=== PATIENT | female | born 1970 | race Caucasian/White ===

== ENCOUNTER 2019-05-12 19:51 | Emergency (ER) | payer OTHER, SELFPAY ==
[2019-05-12 20:03] VITALS: BP 107/68; PULSE 87; RESP 16; TEMP 37.1; O2SAT 98
--- NOTE | 2019-05-12 20:43 | ED.GENADULT ---
HPI - General Adult General Chief complaint: Upper Respiratory Infection Stated complaint: Cough/Fever/Eye problems Time Seen by Provider: 05/12/19 20:43 Source: patient and RN notes reviewed Mode of arrival: ambulatory Limitations: no limitations History of Present Illness HPI narrative: 49-year-old female presents with complaints of upper respiratory infection, facial congestion, facial pain, and cough, for the past 2-3 days. Tylenol (last approximately @17:30) with some relief. No facial swelling. Symptoms increased throughout the day with sore throat and tactile fever with intermittent sweats and chills. Dry cough. Nasal congestion and rhinorrhea. Sore throat bilateral. Hurts to swallow. No voice change. No drooling, neck or throat swelling. No chest pain or shortness of breath. Exacerbating factors consist of smoke exposure and swallowing. Denies nausea, vomiting, and abdominal pain. Tolerating po intake well. Remains active. Yoselin denies being , LMP hysterectomy. Some parts of this dictation were generated by voice recognition software and may contain typographical and/or grammatical inaccuracies. Related Data Home Medications Medication Instructions Recorded Confirmed estradiol 1 mg PO DAILY 02/11/19 02/11/19 Allergies Allergy/AdvReac Type Severity Reaction Status Date / Time iodine Allergy Unknown Rash Verified 02/11/19 12:26 Penicillins Allergy Unknown Rash Verified 02/11/19 12:26 Sulfa (Sulfonamide Allergy Unknown Rash Verified 02/11/19 12:26 Antibiotics) Contrast Media Allergy Severe Swelling Uncoded 02/11/19 12:26 Review of Systems Review of Systems: Narrative: CONSTITUTIONAL: Complains of tactile fever, chills, sweats. EYES: Denies visual changes, redness, discharge. ENT: Complains of rhinorrhea, congestion, sore throat. Denies otalgia. CARDIOVASCULAR: Denies chest pain, palpitations, edema. RESPIRATORY: Denies dyspnea, wheezing. Complains of dry cough. GASTROINTESTINAL: Denies abdominal pain, nausea, vomiting, diarrhea. GENITOURINARY: Denies dysuria, hematuria, abnormal discharge. SKIN: Denies rash or itching. MUSCULOSKELETAL: Denies acute back pain, joint pain, or myalgia. NEUROLOGIC: Denies numbness or focal weakness. PSYCHIATRIC: Denies anxiety or depression. All systems reviewed & are unremarkable except as noted in HPI and below. [facility] Past Medical History Medical History Migraines Seasonal allergies Urinary tract infection Surgical History Surgical History H/O: hysterectomy History of cholecystectomy Tubal ligation status Family History Family History (Updated 05/12/19 @ 20:51 by HAYLEE Irby) Mother Diabetes mellitus Cardiac arrhythmia Social History Social History (Updated 05/12/19 @ 20:51 by HAYLEE Irby) Smoking status: Never smoker Second hand tobacco smoke exposure: Yes Alcohol intake: current Alcohol use details: Occasional Substance use: never Living arrangements: with family Occupation/Education: occupation Gender identity (if verbalized by the patient): Female Comments At time of signature, agree with nurse past medical, surgical, social, and family history. There is no relevant family history pertinent to the presenting complaint. Exam Narrative: Exam Narrative: GENERAL: This is a well-nourished, well-developed patient, in no apparent distress. Talks in full sentences and ambulates with steady gait without dyspnea. HEAD: normocephalic, atraumatic. EYES: PERRL. Sclera clear/white. Vision is grossly intact. EARS: External ears normal, auditory canals clear and without drainage, TMs normal without perforation. Hearing grossly intact. NOSE: External nose normal with no obvious nasal discharge, nares with mild-moderate redness and enlarged turbinates, clear rhinorrhea. THROAT: Mucou
== END 2019-05-12 20:57 | disposition home or self-care (01) ==
PROVIDERS: Emergency Provider Nurse Practitioner Family; PCP Family Medicine
DX: J00 Acute nasopharyngitis [common cold] (principal); J01.90 Acute sinusitis, unspecified
CPT/HCPCS: 87081; 87804; 87880; 99213; G0463